=== PATIENT | female | born 1985 | race Caucasian/White ===

== ENCOUNTER 2016-09-09 18:27 | Outpatient (CLI) | payer SELFPAY ==
[~2016-09-09] VITALS: Ht 165.1 cm; Wt 108.7 kg
[2016-09-09] MEDS ORDERED: CEPH-442 PO (18:53)
[2016-09-09 18:54] VITALS: Ht 165.1 cm; Wt 108.7 kg
[2016-09-09 18:55] VITALS: BP 129/60; PULSE 94; RESP 18
--- NOTE | 2016-09-09 22:04 | RADRPT ---
PROCEDURE: Obstetrical ultrasound greater than 14 weeks CLINICAL INDICATION: Contractions. Fluid leaking. TECHNIQUE: Real time sonographic imaging of the gravid uterus is performed transabdominally and mu ltiple static carlton scale and Doppler images are submitted for review as are measurements. The image s are reviewed on the PACS. COMPARISON: 05/09/2016 FINDINGS: The cervical os is closed with a normal cervical length of 3.8 cm but with a small amount of fluid s een extending into the cervical canal. There is a single living intrauterine gestation in cephalic presentation. The heart beat is estimated at 139 bpm. The measurements are as follows: BPD:8.78 cm HC:31.96 cm AC:29.34 cm FL:6.56 cm Estimated gestational age is 34 weeks 5 days, appropriate growth compared to the prior study. The e stimated date of delivery is 10/16/2016. The estimated weight is 2311 grams. Placenta is anterior and grade2. There is no evidence of placenta previa or abruption. The amniotic fluid index is increased estimated at 20.9 cm. RPTAT:HJJR IMPRESSION: 1. Single viable intrauterine gestation in cephalic presentation estimated at 34 weeks 5 days, appro priate growth compared to the prior exam of 05/09/2016 with the estimated date of delivery 7. 2. Small amount of fluid within the cervical canal, the cervical length measured at 3.8 cm. 3. Polyhydramnios, the amniotic fluid index measured at 20.9 cm. 4. Anterior grade 2 placenta without placenta previa or abruption. 5. Estimated weight of 2311 g is approximately the 78th percentile. Physician Nehal Date Time Electronically viewed and signed by Physician Nehal on 09/09/2016 22:04 JR/
--- NOTE | 2016-09-09 23:13 | QN ---
Documentation Comment 31 y/o L2 at 32 wks 5 days with c/o leakage of fluid and contractions. Reports good movement. Afebrile VSS Abdomen soft NT NST Category I Sterile speculum exam no pooling ROM test negative OB u/s Cervical length and SWETHA normal After rest and hydration, patient feels better and denies feeling any more contraction Stable D/C home. Follow up with Dr Antonio this week. JIMMY RYAN MD Sep 09, 2016 23:12
--- NOTE | 2016-09-09 23:23 | TRIAGE ---
OB Triage Datetime Report Generated by CPN: 09/09/2016 23:23 Datetime: 09/09/2016 22:10 Pain Assessment Pain Scale: 2 Pain Presence: Intermittent Pain Type: Cramping Pain Location: Abdomen; Back Datetime: 09/09/2016 21:00 Bedside Blood Glucose: 95 Datetime: 09/09/2016 20:40 Heart Rate Comments: U/S adjusted. Unable to keep baby on. Pt wants to sit up in high fowlers states her back hurts. Datetime: 09/09/2016 20:33 Vaginal Exam Pool: Negative Nitrazine: Negative Datetime: 09/09/2016 19:19 Pain Assessment Pain Scale: 5 Pain Presence: Intermittent Pain Type: Cramping Pain Location: Abdomen; Back Datetime: 09/09/2016 18:51 Assessment Type: Triage Maternal Assessment Level of Consciousness: Fully Conscious DTR's/Clonus: DTRs 2+; No Clonus Headache: Denies Blurred Vision: No Respiratory Effort: Unlabored; Regular Rhythm; Equal Expansion Breath Sounds, Left: Clear and Equal Breath Sounds, Right: Clear and Equal Nausea/Vomiting: Denies RUQ Epigastric Pain: Denies Lower Extremities Edema: None Degree: None Upper Extremities Edema: None Degree: None Facial Edema: None Fall Risk Assessment History of Falling: (0) No Secondary Diagnosis: (0) No Ambulatory Aid: (0) Bedrest/Nurse Assist IV Therapy: (0) No Gait: (0) Normal/Bedrest/Immobile Mental Status: (0) Oriented to Own Ability Fall Score: 0 Fall Risk Score Definition: No Risk: No action required Datetime: 09/09/2016 18:45 EGA: 32.5 Datetime: 09/09/2016 18:42 Time of Arrival: 09/09/2016 18:25 Arrived By: Ambulatory Arrived From: Office Chief Complaint: PT SENT FROM CLINIC TO R/O PTL Movement: Present Contractions: Irregular Rupture of Membranes: Denies Vaginal Bleeding: None Vaginal Discharge: Denies Recent Sexual Intercouse: Denies Abdominal Trauma: Not Applicable Patient Complaints: Contractions; Cramping; Back Pain Provider Notified: HERI Initial Plan: CE[facility]
== END 2016-09-09 23:00 | disposition home or self-care (01) ==
LOC: L-D 18:27 → OBT 18:27
PROVIDERS: ATTEND Obstetrics & Gynecology
DX: O26.893 Other specified pregnancy related conditions, third trimester (principal); O62.9 Abnormality of forces of labor, unspecified; Z3A.32 32 weeks gestation of pregnancy
CPT/HCPCS: 76815; 76817; 82962; 84112; G0463

== ENCOUNTER 2016-10-21 13:30 | Outpatient (CLI) | payer MEDICAID ==
[~2016-10-21] VITALS: Ht 165.1 cm; Wt 115.1 kg
[~2016-10-21 13:30] MED LIST: CEPH-442 PO
[2016-10-21 13:50] VITALS: Ht 165.1 cm; Wt 115.1 kg
--- NOTE | 2016-10-21 14:43 | RADRPT ---
PROCEDURE: US OB biophysical profile. CLINICAL INDICATION: decreased movements TECHNIQUE: Multiple sonographic images of the pelvis were obtained. The images were reviewed on a PACS workstation. COMPARISON: 09/09/16 FINDINGS: There is a single viable intrauterine gestation. Cardiac activity is present with 142 beats per min ju. There is a vertex presentation. The placenta is anterior. There is no evidence of placental abruption. There is a normal amount of amniotic fluid with an SWETHA = 9.7 cm. Biophysical profile: movement 2/2 tone 2/2. breathing 2/2 SWETHA 2/2 Total 03/10 RPTAT: AA . IMPRESSION: Normal biophysical profile. . .Reynaldo Reyez MD, MD Date Time Electronically viewed and signed by .Reynaldo Reyez MD, MD on 10/21/2016 14:43 .S/
[2016-10-21 14:44] VITALS: BP 138/73; PULSE 90; RESP 18
--- NOTE | 2016-10-21 16:01 | TRIAGE ---
OB Triage Datetime Report Generated by CPN: 10/21/2016 16:01 Datetime: 10/21/2016 15:00 Labor Evaluation Frequency: 2.5-10 Monitor Mode: External Duration (sec)2399: 40-100 Quality: Mild Pattern: Normal: <= 5 Contractions in 10 Minutes Resting Tone Dah[place]: Relaxed Heart Rate FHR Baseline Rate: 140 Monitor Mode: External US FHR Baseline Changes: No Baseline Change Variability: Moderate 6-25 bpm Accelerations: 15X15 Decelerations: None Category: Category I Pain Assessment Pain Scale: 8 Pain Presence: Intermittent Pain Type: Pressure; Ache Pain Location: Back Pain Goal: 0 Pain Relief Measures: Comfort Measures Pain Assessment Comments: Pt c/o 8/10 pain only with contractions Datetime: 10/21/2016 14:57 Vaginal Exam Dilatation (cms): 1.0 Effacement (%): 20 Station: -4 Exam By: Trinidad RN Datetime: 10/21/2016 14:00 Labor Evaluation Frequency: Irregular Monitor Mode: External Quality: Mild Pattern: Normal: <= 5 Contractions in 10 Minutes Resting Tone [place]: Relaxed Comments: RN at bedside attempting to find FHR. FHR extremely difficult to find. Pain Assessment Pain Scale: 8 Pain Presence: None/Denies Pain Type: Ache Pain Location: Back Pain Goal: 0 Pain Relief Measures: Comfort Measures Pain Assessment Comments: Pain occuring only with contractions Datetime: 10/21/2016 13:36 Time of Arrival: 10/21/2016 13:23 Arrived By: Ambulatory Arrived From: Dr. Perry Chief Complaint: Decreased movement Movement: Present (Annotations: Data stored by CPN on behalf of user) Contractions: Denies/Absent Rupture of Membranes: Denies Vaginal Discharge: Denies Recent Sexual Intercouse: Denies Abdominal Trauma: Not Applicable Patient Complaints: Other Initial Plan: BPP/SWETHA, NST Datetime: 10/21/2016 13:25 Assessment Type: Triage Maternal Assessment Level of Consciousness: Fully Conscious DTR's/Clonus: DTRs 2+; No Clonus Headache: Denies Blurred Vision: No Respiratory Effort: Unlabored; Regular Rhythm; Equal Expansion Breath Sounds, Left: Clear and Equal Breath Sounds, Right: Clear and Equal Nausea/Vomiting: Denies RUQ Epigastric Pain: Denies Lower Extremities Edema: Bilateral Lower Extremities Degree: Trace Upper Extremities Edema: Bilateral Upper Extremities Degree: Trace Facial Edema: None Fall Risk Assessment History of Falling: (0) No Secondary Diagnosis: (0) No Ambulatory Aid: (0) Bedrest/Nurse Assist IV Therapy: (0) No Gait: (0) Normal/Bedrest/Immobile Mental Status: (0) Oriented to Own Ability Datetime: 09/09/2016 22:45 Pain Assessment Pain Scale: 0 Pain Presence: None/Denies Pain Type: N/A Datetime: 09/09/2016 22:36 Labor Evaluation Frequency: NONE Monitor Mode: External Datetime: 09/09/2016 22:00 Labor Evaluation Frequency: x2 Monitor Mode: External Duration (sec)2399: 50-80 Pattern: Normal: <= 5 Contractions in 10 Minutes Resting Tone [place]: Relaxed Datetime: 09/09/2016 21:36 Pain Assessment Pain Scale: 2 Pain Presence: Intermittent Pain Type: Cramping Pain Location: Abdomen; Back Datetime: 09/09/2016 21:09 Labor Evaluation Frequency: 2-9 Monitor Mode: External Duration (sec)2399: 50-90 Pattern: Normal: <= 5 Contractions in 10 Minutes Resting Tone [place]: Relaxed Datetime: 09/09/2016 20:32 Pain Assessment Pain Scale: 5 Pain Presence: Intermittent Pain Type: Cramping Pain Location: Abdomen; Back Datetime: 09/09/2016 20:12 Labor Evaluation Frequency: 2-6 Monitor Mode: External Pattern: Normal: <= 5 Contractions in 10 Minutes Resting Tone [place]: Relaxed Heart Rate FHR Baseline Rate: 140 Monitor Mode: External US Variability: Moderate 6-25 bpm Accelerations: 15X15 Decelerations: None Category: Category I Datetime: 09/09/2016 19:32 Monitor Mode: Palpation Quality: Mild Datetime: 09/09/2016 19:25 Labor Evaluation Frequency: 3-8 Monitor Mode: External Duration (sec)2399: 40-90 Pattern: Normal: <= 5 Contractions in 10 Minutes Resting Tone [place]: Relaxed Heart Rate FHR Baseline Rate: 140 Monitor Mode: External US Variability: Moderate 6-25 bpm Accelerations: 15X15 Decelerations: None Category: Category I Datetime: 09/09/2016 19:19 Stage of : OB Triage
== END 2016-10-21 15:15 | disposition home or self-care (01) ==
LOC: OBT 13:30 → L-D 13:30 → OBT 15:15
PROVIDERS: ATTEND Obstetrics & Gynecology
DX: O40.3XX0 Polyhydramnios, third trimester, not applicable or unspecified (principal); Z3A.37 37 weeks gestation of pregnancy
CPT/HCPCS: 76818; Z7500; G0463